=== PATIENT | female | born 2000 | race Caucasian/White ===

== ENCOUNTER 2024-12-24 09:11 | Outpatient (CLI) | payer OTHER, SELFPAY | END 2024-12-24 10:10 | disposition home or self-care (01) | LOC: LABOR 10:01 → OB 12:12 | PROVIDERS: Referring Provider Obstetrics & Gynecology; Visit Provider Obstetrics & Gynecology | DX: O36.8130 Decreased fetal movements, third trimester, not applicable or unspecified (principal); Z3A.32 32 weeks gestation of pregnancy | CPT/HCPCS: 59025; G0378; G0379 ==